=== PATIENT | female | born 1945 | race Caucasian/White ===

== ENCOUNTER → 2016-07-05 | Outpatient (CLI) | payer OTHER, MEDICARE ==
[2016-02-16 14:54] VITALS: BP 135/79
[~2016-07-05] MED LIST: GADOBUTROL 10 MMOL/10 ML VIAL IV ONE
--- NOTE | 2016-07-05 15:50 | RAD ---
PROCEDURE Cervical spine MRI with and without contrast. HISTORY Neck pain and left upper extremity radiculopathy. TECHNIQUE Multiplanar and multi sequence magnetic resonance imaging of the cervical spine was performed prior to and following the administration of 9 cc Gadavist intravenous contrast. COMPARISON None. FINDINGS There is mild anterolisthesis of C3 on C4 and C4 on C5, C6 on C7, C7 on T1, T1 on T2, and T2 on T3. There is a mild anterior wedge deformity of T3 and there is minimal anterior wedging of T2. There is degenerative endplate remodeling at multiple levels. There is disc space narrowing predominately at C5-C6. No spinal cord lesion is seen. There is cerebral and cerebellar volume loss. There is edema and enhancement within the left posterior endplates, pedicles and facets at C3-C4. There is also surrounding soft tissue edema. At C2-C3, there is mild left facet arthropathy. There is mild left foraminal stenosis. At C3-C4, there is a left paracentral to foraminal disc protrusion with osteophyte complex superimposed on endplate remodeling. There is mild to moderate bilateral facet arthropathy. There is slight buckling of the ligamentum flavum. There is mild to moderate right and moderate to severe left foraminal stenosis. At C4-C5, there is a left paracentral to foraminal endplate osteophyte superimposed on endplate remodeling. There is moderate facet arthropathy. There is moderate left foraminal stenosis. At C5-C6, there is near complete loss of the disc space. There is mild facet arthropathy. There is no stenosis. At C6-C7, there is a posterior central disc protrusion superimposed on a disc bulge and endplate remodeling. There is no stenosis. IMPRESSION 1. Multilevel degenerative change within the cervical spine, described in detail above. This results in mild left foraminal stenosis at C2-C3, mild to moderate right and moderate to severe left foraminal stenosis at C3-C4, and moderate left foraminal stenosis at C4-C5. 2. Abnormal signal within the left posterior endplates, pedicles and facet joint at C3-C4 and surrounding soft tissues. In the absence of recent trauma or recent spinal instrumentation, this is likely degenerative/inflammatory or due to a stress reaction. 3. Mild multilevel listhesis. 4. Mild chronic anterior wedging of T3 and minimal anterior wedging of T2. Electronically signed by: Ela Batista (Jul 05, 2016 15:48:38)
== END | disposition home or self-care (01) ==
LOC: MRI 13:46
PROVIDERS: ATTEND Nurse Practitioner
DX: M42.12 Adult osteochondrosis of spine, cervical region (principal)
CPT/HCPCS: 72156; A9585

== ENCOUNTER → 2016-08-08 | Outpatient (CLI) | payer OTHER, MEDICARE ==
[2016-02-16 14:54] VITALS: BP 135/79
--- NOTE | 2016-08-08 10:37 | RAD ---
PROCEDURE MRI left shoulder without contrast dated 08/08/2016. HISTORY Shoulder pain. Recent fall. TECHNIQUE Routine multiplanar multisequence MR imaging of left shoulder performed. COMPARISON None. FINDINGS Study is limited due to metallic susceptibility artifact from overlying pacemaker leads. Intermediate T2 signal within the supraspinatus and infra spinatus portions of the rotator cuff. No full thickness tear or retracted tear. The subscapularis is not well evaluated. Mild hypertrophic change of the acromioclavicular joint. Mild undersurface irregularity of the acromion and distal clavicle. No focal spur. No significant subacromial/subdeltoid bursal fluid collection. Long head biceps tendon and biceps anchor are not well evaluated due to artifact. Glenoid labrum is also not well evaluated. No apparent joint effusion or loose body. Bone marrow signal is homogeneous. No marrow edema. Suprascapular and spinoglenoid notches are clear. IMPRESSION - Limited exam due to metallic susceptibility artifact. Glenoid labrum and biceps tendon not well evaluated. - Mild rotator cuff tendinopathy with no evidence of full-thickness tear. - Mild AC joint arthropathy with mild undersurface spurring. Electronically signed by: Valerio Ventura (Aug 08, 2016 10:36:33)
== END | disposition home or self-care (01) ==
LOC: MRI 14:49
PROVIDERS: ATTEND Nurse Practitioner
DX: M25.512 Pain in left shoulder (principal)
CPT/HCPCS: 73221